=== PATIENT | male | born 1970 | race Caucasian/White ===

== ENCOUNTER 2022-04-24 17:49 | Emergency (ER) | payer MEDICAID ==
[~2022-04-24] VITALS: Ht 172.7 cm; Wt 117.9 kg
[~2022-04-24 17:49] MED LIST: ADDERALL 20 MG20 MG PO; IBU400 MG PO; OXYCODONE HCL10 MG PO
--- OUTSIDE RECORDS SUMMARY | 2022-04-24 17:50 | XMS ---
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 Cathryn has no Care Guidelines for this patient. [facility] (12 MO.) [facility] NOTE: Visits indicate total known visits. ED/C VISIT TRACKING (12 MO.) [facility] 17[facility] COMPLAINT: - FLANK PAIN 04/19/2022 05:30 [facility] TYPE: Emergency COMPLAINT: - ABD PAIN INPATIENT VISIT TRACKING (12 MO.) 04/19/2022 05:31 [facility] TYPE: Observation COMPLAINT: - ACUTE CHOLECYSTITIS DIAGNOSES: - COVID-19 - Umbilical hernia without obstruction or gangrene - Calculus of gallbladder with acute and chronic cholecystitis without obstruction - Alcohol use, unspecified, uncomplicated - Unspecified cirrhosis of liver - Attention-deficit hyperactivity disorder, unspecified type [email or web address]
[2022-04-24] MEDS ORDERED: VENLAFAXINE HCL75 M1 PO (19:39)
[2022-04-24] MEDS ORDERED: HYDROCODON-ACE1 EA10 PO (21:51)
== END 2022-04-24 22:53 | disposition home or self-care (01) ==
LOC: ED 17:49
DX: K91.872 Postprocedural seroma of a digestive system organ or structure following a digestive system procedure (principal); G89.18 Other acute postprocedural pain; Z90.49 Acquired absence of other specified parts of digestive tract; Z79.899 Other long term (current) drug therapy
CPT/HCPCS: 36415; 71045; 74177; 80053; 83690; 85025; 96374; 96375; 99284-25; J1885; J2270; Q9967